=== PATIENT | male | born 1990 | race Caucasian/White ===

== ENCOUNTER 2025-02-25 15:22 | Emergency (ER) | payer OTHER, SELFPAY ==
[2025-02-25 15:30] VITALS: BP 130/86; PULSE 99; RESP 20; TEMP 36.7; O2SAT 98
--- NOTE | 2025-02-25 15:50 | ED.SKABFB ---
HPI - Skin/Abscess/Foreign Bdy General Chief complaint: Skin/Abscess/Foreign Body Stated complaint: Rash Time Seen by Provider: 02/25/25 15:50 Source: patient Mode of arrival: ambulatory Limitations: no limitations History of Present Illness HPI narrative: [age] year male reports itchy rash for 2 months. Itching to bilateral arms, behind neck, lower back, groin and around ankles. all systems reviewed and negative except as noted above. Related Data Allergies Allergy/AdvReac Type Severity Reaction Status Date / Time No Known Allergies Allergy Verified 02/25/25 15:34 Review of Systems Review of Systems: CONSTITUTIONAL: Denies fever, chills, or sweats. EYES: Denies visual changes, redness, or discharge. ENT: Denies rhinorrhea, congestion, sore throat, or otalgia. CARDIOVASCULAR: Denies chest pain, palpitations, or edema. RESPIRATORY: Denies cough or dyspnea. GASTROINTESTINAL: Denies abdominal pain, nausea, vomiting, or diarrhea. GENITOURINARY: Denies dysuria or hematuria. SKIN: Reports rash and itching MUSCULOSKELETAL: Denies back pain, joint pain, or myalgia. NEUROLOGIC: Denies headache, numbness, or weakness. PSYCHIATRIC: Denies anxiety or depression. All other systems reviewed are negative, except as documented in HPI. PMFSH Comments At time of signature, agree with nursing past medical, surgical, social and family history. There is no relevant family history pertinent to the presenting complaint. Exam Narrative: GENERAL: This is a well-nourished, well-developed patient, in no apparent distress. HEAD: normocephalic, atraumatic. EYES: PERRL. Sclera clear/white. Vision is grossly intact. EARS: External ears normal NOSE: External nose normal NECK: Neck supple, non-tender without lymphadenopathy, masses or thyromegaly. CARDIOVASCULAR: Regular rate and rhythm without murmurs, gallops, or rubs. RESPIRATORY: Clear to auscultation. Breath sounds equal bilaterally. No wheezes, rales, or rhonchi. SKIN: warm, Dry, intact, good texture and turgor. erythematous papules to lower back, around ankles and waist, worse to bilateral arms with excoriation from scratching NEURO: awake, alert, and oriented to person, place and time. There were no obvious focal neurologic abnormalities. EXTREMITIES: No joint tenderness, effusion, or edema noted. Course Course Level of Care: Express Care Visit Vital Signs Vital signs: Vital Signs Temperature 36.7 C 02/25/25 15:30 Pulse Rate 99 02/25/25 15:30 Respiratory Rate 20 02/25/25 15:30 Blood Pressure 130/86 02/25/25 15:30 Pulse Oximetry 98 02/25/25 15:30 Oxygen Delivery Room Air 02/25/25 15:30 Temperature 36.7 C 02/25/25 15:30 Pulse Rate 99 02/25/25 15:30 Respiratory Rate 20 02/25/25 15:30 Blood Pressure 130/86 02/25/25 15:30 Pulse Oximetry 98 02/25/25 15:30 Oxygen Delivery Room Air 02/25/25 15:30 reviewed MDM - Skin/Abscess/Foreign Bdy MDM Narrative Medical decision making narrative: will treat scabies with permethrin. Recommend follow-up with primary care physician if not resolving. Differential Diagnosis Differential diagnosis: Likely urticaria, eczema, insect bites and contact dermatitis Discharge Plan Discharge Clinical Impression: Scabies Patient Disposition: Home Condition: Stable Instructions: Scabies (ED) Additional Instructions: Apply permethrin as prescribed. Repeat permethrin in 2 weeks if not improving. Follow discharge instructions regarding how to clean for scabies. Follow-up with primary care physician if not improving. Patient Language: Brazilian Prescriptions: New permethrin 5 % cream 1 applic topical Q14D Qty: 60 0RF Rx Instructions: Apple from neck down to soles of feet. Leave on for 8 to 10 hours and then shower. apply second treatment 14 days after first treatment if live lice remain Follow-up/Referrals: UNKNOWN,DOCTOR [Primary Care Provider] - Time of Disposition: 16:03
--- OUTSIDE RECORDS SUMMARY | 2025-02-25 16:31 | XMS_ITS | Clinical Summary ---
Author Organization [facility] Address [address] [facility], [place] [address] Phone Care Team Providers Care Executive Creative Director Name Role Phone Provider, None Primary Care Provider Unavailabl e Allergies Active Allergy Reactions Criticality Noted Date Comments Other Unknown Mushrooms Medications acetaminophen 325 MG PO TABS 650 mg every 4 hours as needed. Active diphenhydrAMINE 25 MG PO CAPS 25 mg every 6 hours as needed. Active aluminum & magnesium hydroxide-simethico ne (MYLANTA) 200-200-20 MG/5ML Suspension Take 30 mL by mouth every 4 hours as needed. Active guaiFENesin (ROBITUSSIN) 100 MG/5ML Liquid Take 10 mL by mouth every 4 hours as needed. Active QUEtiapine (SEROQUEL) 25 MG Tablet Take 25 mg by mouth 2 times daily. Active simvastatin (ZOCOR) 5 MG TabletIndications:H yperlipidemia, unspecified hyperlipidemia type Take 1 Tab by mouth every evening. 90 Tab 3 7 Active Active Problems Problem Noted Date Diagnosed Date Impulse control disorder 01/18/2017 Mild intellectual disability 03/26/2016 MR (mental retardation) 12/19/2015 Static encephalopathy 12/19/2015 Hyperlipidemia 12/19/2015 Gastroesophageal reflux disease 12/19/2015 Immunizations Immunization Administration Dates Next Due Influenza Vaccine greater than 3 yrs 09/12/2012 TD VACCINE 08/12/2012 Social History Tobacco Use Types Packs/Day Years Used Date Smoking Tobacco: Never Smokeless Tobacco: Never Tobacco Cessation:Counseling Given: Yes Alcohol Use Standard Drinks/Week Comments No 0 (1 standard drink = 0.6 oz pur e alcohol) Sex and Gender Information Value Date Recorded Sex Assigned at Not on file Legal Sex Male 7:41 PM CDT Gender Identity Not on file Sexual Orientation Not on file Last Filed Vital Signs Vital Sign Reading Time Taken Comments Blood Pressure 104/66 01/18/2017 11:48 AM CDT Pulse 78 01/18/2017 11:48 AM CDT Temperature 36.8 C (98.2 F) 01/18/2017 11:48 AM CDT Respiratory Rate 18 01/18/2017 11:48 AM CDT Oxygen Saturation 95% 01/18/2017 11:48 AM CDT Inhaled Oxygen Concentration - - Weight 58.1 kg (128 lb) 01/18/2017 11:48 AM CDT Height 172.7 cm (5' 8) 01/18/2017 11:48 AM CDT Body Mass Index 19.46 01/18/2017 11:48 AM CDT Plan of Treatment Health Maintenance Due Date Last Done Comments Hepatitis C Virus (HCV) Screening 1989 TdaP Immunization 1989 Hepatitis B Immunization (1 of 3 - 19+ 3-dose series) 02/12/2008 Influenza Immunization (#1) 2024 09/12/2012 SARS-COV-2 Immunization ( - 2023-25 season) 2024 Respiratory Syncytial Virus (RSV) Immunization (Adult) (1 - 1-dose 75+ series) 02/12/2064 Meningococcal Immunization (ACWY) Aged Out No longer eligible based on patient's age to complete this topic Pneumococcal Immunization Combined Aged Out No longer eligible based on patient's age to complete this topic Rotavirus Immunization Aged Out No lo nger eligible based on patient's age to complete this topic Insurance MEDICARE [place]ICAID [place] Care Teams Executive Creative Director Relationship Specialty Start Date End Date Provider, None [place] PCP - General 02/24/21
--- OUTSIDE RECORDS SUMMARY | 2025-02-25 16:31 | XMS_ITS | Encounter Summary ---
Author Organization [facility] Address [address] [place] [address] Phone Care Team Providers Care Personal Security Specialist Name Role Phone No, Physician Primary Care Provider [phone] Encounter Details Date Type Department Care Team (Late st Contact Info) Description 03/30/2022 Ophth Exam [facility] [address] [place] [address] 1st [place] [id number] Beverly Loza MD [address] [place] [address] Social History Tobacco Use Types Packs/Day Years Used Date Smoking Tobacco: Never Smokeless Tobacco: Never Alcohol Use Standard Drinks/Week Comments No 0 (1 standard drink = 0.6 oz pur e alcohol) AUDIT-C Answer Date Recorded Q1: How often do you have a drink containing alc ohol? Never 04/02/2022 Average Number of Drinks Not on file 022 Q3: How often do you have si x or more drinks on one occasion? Never 04/02/2022 Sex and Gender Information Value Date Recorded Sex Assigned at Not on file Legal Sex Male 1:06 AM CORN PICKER Gender Identity Not on file Sexual Orientation Not on file documented as of this encounter Functional Status documented as of this encounter Plan of Treatment Not on file documented as of this encounter Visit Diagnoses Not on filedocumented in this encounter Eye Exam Visual Acuity Right eye Left eye Near sc 20/20 HM; ecc CF @ 6 i nches Tonometry (Tonopen, 10:14 PM) Right eye Left eye Pressure 17 17 Pupils Dark Light Shape React APD Right eye 4 3.5 Round Slow None Left eye 4 3.5 Round Slow ? Previous ly dilated earlier today, unreliable exam Visual Grullon (Counting fingers) Right eye Left eye Full Right full to hand motion Extraocular Movement Right eye Left eye Full Full External Exam Right eye Left eye External Normal Normal Slit Lamp Exam Right eye Left eye Lids/Lashes Normal Normal Conjunctiva/Sclera White and quiet White and lopez et Cornea Clear Clear Anterior Chamber Deep and formed Deep and formed Iris Round and reactive Round and michael ctive Lens Clear; phakic Clear; phakic Anterior Vitreous Normal Normal Fundus Exam Right eye Left eye Posterior Vitreous Normal Normal Disc Tilted/myopic disc Tilted/myopic disc Macula Flat, attached Flat, attached Vessels Normal course and caliber Normal couse and caliber Periphery No RT/RD on 360 RAIL EQUIPMENT OPERATOR Macula invol ving RRD with giant retinal tear from m1-4 and hole at 3 o'clock mid-periphery Care Teams Personal Security Specialist Relationship Specialty Start Date End Date No, Physician PCP - General 03/30/22 documented as of this encounter
--- OUTSIDE RECORDS SUMMARY | 2025-02-25 16:31 | XMS_ITS | Referral Summary ---
Author Organization [facility] Address [address] [place] [address] Care Team Providers Care Molasses Coloring Operator Name Role Phone No, Physician Primary Care Provider [phone] Allergies Active Allergy Reactions Criticality Noted Date Comments Mushroom Combination No.1 Rash Medium 03/30/2022 Medications acetaminophen (TYLENOL) 500 mg tablet Take 500 mg by mouth every 6 (six) hours as needed for pain Active diphenhydrAMINE (BENADRYL) 25 mg capsule Take 25 mg by mouth every 6 (six) hours as needed for allergies Active Active Problems Problem Noted Date Diagnosed Date Left retinal detachment 03/30/2022 Assessment & Plan (02/23/2023 4:03 PM CDT): status post SB/ppv/el/c3f8 12% to the left eye on 06/23/22. Flat and attached Doing well Return retina PRN Assessment & Plan (09/29/2022 1:22 PM 8TH GRADE MATHEMATICS TEACHER): Three month status post SB/ppv/el/c3f8 12% to the left eye on 06/23/22. (Originally was RRD s/p ppv/el/c3f8 14% 04/02/22, at [facility] had worsening vision and exam with recurrent RRD) Doing well. Nice and attached 360, visual acuity (VA) improved. Signs and symptoms of retinal detachment, tears and endophthalmitis, elevated pressure reviewed with patient. RTC in 4 months for repeat exam. Assessment & Plan (07/28/2022 3:42 PM 8TH GRADE MATHEMATICS TEACHER): One month status post SB/ppv/el/c3f8 12% to the left eye on 06/23/22. (Originally was RRD s/p ppv/el/c3f8 14% 04/02/22, at [facility] had worsening vision and exam with recurrent RRD) Doing well. Signs and symptoms of retinal detachment, tears and endophthalmitis, elevated pressure reviewed with patient. Assessment & Plan (06/30/2022 4:23 PM CDT): One week status post SB/ppv/el/c3f8 12% to the left eye on 06/23/22. Doing well. Taper pred forte (PF) by reducing it by one drop a day each week Return to clinic in 3-4 weeks. Signs and symptoms of retinal detachment, tears and endophthalmitis, elevated pressure reviewed with patient. Post Op Position: none required Altitude precautions were reviewed with patient. Assessment & Plan (06/23/2022 12:51 PM CDT): One day status post SB/ppv/el/c3f8 12% to the left eye on 06/23/22. Doing well. Tobramycin 4x/day, Predforte 4x/day and Taper pred forte (PF) by reducing it by one drop a day each week Return to clinic in one week. Signs and symptoms of retinal detachment, tears and endophthalmitis, elevated pressure reviewed with patient. Post Op Position:Face Down. Altitude precautions were reviewed with patient. No strenuous activity. Assessment & Plan (06/16/2022 5:06 PM CDT): RRD s/p ppv/el/c3f8 14% 04/02/22 Now nearly [facility]. Worsening vision x 1 month and exam with recurrent RRD No new overt tears on exam - fluid border at superotemporal prior CR scarring - may be small slit tear. Discussed findings with patient and need for additional surgery. Surgery: PPV/possible SB/EL/AFx/gas vs. Oil LEFT EYE Anesthesia: PAULETTE Attending(s): Manuel Fellow: Adalberto Time: 120 minutes Preop appointment needed: none Date: 06/22/22 Assessment & Plan (05/19/2022 4:58 PM CDT): RRD s/p ppv/el/c3f8 14% 04/02/22 POW6 Doing well. Retina flat. Gas still present but resolving. Pt off drops now Return 2 months for [facility] visit w/ DFE OS, OCT mac OS Assessment & Plan (04/15/2022 3:13 PM CDT): RRD s/p ppv/el/c3f8 14% 04/02/22 POW2. Doing well. Retina flat Taper PF 3-2-1-0 q1w Stop tobramycin Return 3-4 weeks for DFE OS, OCT mac OS Assessment & Plan (04/07/2022 12:43 PM CDT): RRD s/p ppv/el/c3f8 14% 04/02/22 Doing well Inexperienced with drops and caused central K abrasion - healing Post op precautions discussed Assessment & Plan (04/03/2022 9:19 AM CDT): One day status post PPV/EL/AFx/C3F8 to the left eye on 04/02/22. Doing well. Tobramycin 4x/day, Predforte 4x/day and Taper pred forte (PF) by reducing it by one drop a day each week Return to clinic in one week. Signs and symptoms of retinal detachment, tears and endophthalmitis, elevated pressure reviewed with patient. Post Op Position:upright during day, sleep on right side Altitude precautions were reviewed with patient. No strenuous activity. Resolved Problems Problem Noted Date Diagnosed Date Resolved Date Epilepsy 11/02/2011 04/07/2022 Overview (12/15/2016): Epilepsy Social History Tobacco Use Types Packs/Day Years Used Date Smoking Tobacco: Never Passive Smoke Exposure: Past Smokeless Tobacco: Never Tobacco Cessation:Counseling Given: Not Answered Alcohol Use Standard Drinks/Week Comments No 0 (1 standard drink = 0.6 oz pur e alcohol) AUDIT-C Answer Date Recorded Q1: How often do you have a drink containing alcohol? Never 06/17/2022 Q2: How many drinks containi ng alcohol do you have on a typical day when you are drinking? Patient does not drink Q3: How often do you have si x or more drinks on one occasion? Never 06/17/2022 Sex and Gender Information Value Date Recorded Sex Assigned at Not on file Legal Sex Male 1:06 AM 8TH GRADE MATHEMATICS TEACHER Gender Identity Not on file Sexual Orientation Not on file Last Filed Vital Signs Vital Sign Reading Time Taken Comments Blood Pressure 134/89 06/22/2022 2:40 PM CDT Pulse 82 06/22/2022 2:40 PM CDT Temperature 36.2 C (97.2 F) 06/22/2022 1:50 PM CDT Respiratory Rate 14 06/22/2022 2:40 PM CDT Oxygen Saturation 100% 06/22/2022 2:40 PM CDT Inhaled Oxygen Concentration - - Weight 56.7 kg (125 lb) 06/17/2022 5:10 PM CDT Height 177.8 cm (5' 10) 06/17/2022 5:10 PM CDT Body Mass Index 17.94 06/17/2022 5:10 PM CDT Plan of Treatment Not on file Medical Devices Implanted Type Area Post Office Manager Device Identifier Shelf Expiration Date Model / Serial / Lot [employer] Ophthalmic Usa 2.1mm 1mm 30mm Band Secure Round Sleeve Retinal Silicone 92-13 - [id number] Implanted:Qty: 1 on 06/22/2022 by Mat Jackson MD at [facility] Left: Eye [employer] 06/11/2025 92- / / [id number] Description:Style 70 Silicone sleeve [employer] 125x2.5x.6mm Circling Band Scleral Silicone Sterile 92-02 - [id number] Implanted:Qty: 1 on 06/22/2022 by Mat Jackson MD at [facility] Left: Eye [employer] 05/12/2025 92- / [id number] Description:Style 240 2.5 mm circling band Scleral buckling product Insurance [facility] [place] [facility] [place] [facility] Care Teams Molasses Coloring Operator Relationship Specialty Start Date End Date No, Physician PCP - General 03/30/22
--- OUTSIDE RECORDS SUMMARY | 2025-02-25 16:31 | XMS_ITS | Clinical Summary ---
Author Organization [facility] Address [address] [place] [address] Care Team Providers Care Net Architect Name Role Phone No, Physician Primary Care Provider [phone] Allergies Active Allergy Reactions Criticality Noted Date [...] PRN Assessment & Plan (09/29/2022 1:22 PM INSTRUCTION DEAN): Three month status post SB/ppv/el/c3f8 12% to [...] exam. Assessment & Plan (07/28/2022 3:42 PM INSTRUCTION DEAN): One month status post SB/ppv/el/c3f8 12% to [...] Date Epilepsy 11/02/2011 04/07/2022 Overview (12/15/2016): Epilepsy Surgical History Surgery Date Site/Laterality Comments EYE SURGERY RETINAL DETACHMENT SURGERY 04/02/2022 Left Medical History Medical History Date Comments Hx Other Medical MILD Mental ret ardation Undifferentiated attention deficit disorder ADD Seizure disorder (HCC) Seizure d isorder Family History Medical History Relation Name Comments Anesthesia problems Neg Hx Social History Tobacco Use Types Packs/Day Years [...] on file Legal Sex Male 1:06 AM INSTRUCTION DEAN Gender Identity Not on file Sexual Orientation Not on file Obstetrics History Last Filed Vital Signs Vital Sign Reading [...] 06/17/2022 5:10 PM CDT Plan of Treatment Health Maintenance Due Date Last Done Comments Depression Screening 1989 Hepatitis C Screening 1989 Varicella Vaccines (1 of 2 - 13+ 2-dose series) 2002 Hepatitis B Screening 2007 Regular Well Visit/Exam 18-64 2007 DTaP/Tdap/Td Vaccine (1 - Tdap) 08/13/2012 08/12/2012 Influenza Vaccine (Season Ended) 2025 07/23/2019, 07/09/2016, 05/30/2015, Additional history exists HPV Vaccines Aged Out No longer eligi ble based on patient's age to complete this topic Pneumococcal vaccine <65 Aged Out No longer eligible based on patient's age to complete this topic Medical Devices Implanted Type Area Executive Chairman Of The Board Device Identifier Shelf Expiration Date Model / Serial / Lot [employer] Ophthalmic Usa 2.1mm 1mm 30mm Band Secure Round Sleeve Retinal Silicone 92-13 - [id number] Implanted:Qty: 1 on 06/22/2022 by Mat Jackson MD at [facility] Left: Eye [employer]sa 06/11/2025 92- / [id number] Description:Style 70 Silicone sleeve [employer]sa 125x2.5x.6mm Circling Band Scleral Silicone Sterile 92-02 - [id number] Implanted:Qty: 1 on 06/22/2022 by Mat Jackson MD at [facility] Left: Eye [employer] 05/12/2025 / [id number] Description:Style 240 2.5 mm circling band Scleral buckling product Insurance [facility] Member Subscriber Plan / Payer (Ef fective 2022-Present) Name:John Greene Relation to Subscriber:Self Name:John Greene Payer ID:[id number] (NAIC) Group ID:Not on file Type:MEDICAID RISK OTHER Address: ATTN: CLAIMS DEPT [address] [place] [phone] [facility] Member Subscriber Plan / Payer (Ef fective 2022-Present) Name:John Greene Relation to Subscriber:Self Name:John Greene Payer ID:[id number] (NAIC) Group ID:Not on file Type:MEDICAID RISK OTHER Address: ATTN: CLAIMS DEPT [address] [place] [phone] [facility] [address] [place] [id number] Care Teams Net Architect Relationship Specialty Start Date End Date No, Physician PCP - General 03/30/22
== END 2025-02-25 16:08 | disposition home or self-care (01) ==
PROVIDERS: Emergency Provider Nurse Practitioner Family
DX: B86 Scabies (principal)
CPT/HCPCS: 99203; G0463